=== PATIENT | female | born 1975 | race Caucasian/White ===

== ENCOUNTER 2021-01-08 11:06 | Emergency (ER) | payer OTHER ==
--- OUTSIDE RECORDS SUMMARY | 2021-01-08 11:10 | XMS REPORT | Continuity of Care Document ---
:1975 Author Organization [facility] t Address [address] [place] [address] Care Team Providers Name Role Phone Sattar Attending Clinician Gama Crum Attending Clinician Oscar Cason Attending Clinician Problems Condition Condition Condition Status Onset Resolution Last Treating Co mments Source Name Details Category Date Date Treatment Clinician Date DX: N63= Diagnosis Active 2016-11-27 M emoria UNSPECIFIE -14 12:15:00 l D LUMP IN DX: N63= 00:00: Her valdivia BREAST UNSPECIFIE 00 D LUMP IN BREAST Active 11/14/2016 [facility] M25.572 - Diagnosis Active 2014-092015-06-16 Memoria PAIN IN 0-14 11:57:00 l LEFT ANKLE M25.572 00:01: Her valdivia AND JOINTS - PAIN IN 00 LEFT ANKLE AND JOINTS Active 06/16/2015 [facility] Greg Anxiety Problem Active 2013-07-22 Jose tl (Symptom) 01:07:12 l Anxiety [place] (Symptom) Active [facility] Chronic Problem Active 2013-07-22 Jose tl Obstructiv 01:07:12 l e Chronic Greg Pulmonary Obstructiv Disease e Pulmonary Disease Active [facility] Polyneurop Problem Active 2021-01-04 M emoria athy 04:10:37 l associated Roney n with Polyneurop underlying athy disease associated with underlying disease Active Problem 01/04/2021 Enayet Rahim BMI Problem Active 2021-01-04 Memor ia 60.0-69.9, 04:10:37 l adult BMI [place] 60.0-69.9, adult Active Problem 01/04/2021 Enayet Rahim HTN Problem Active 2021-01-04 Memor ia (hypertens 04:10:37 l ion), HTN [place] benign (hypertens ion), benign Active Problem 01/04/2021 Enayet Rahim Acquired Problem Active 2021-01-04 Mem oria hypothyroi 04:10:37 l dism Acquired Roney n hypothyroi dism Active Problem 01/04/2021 Enayet Rahim Other Problem Active 2021-01-04 Memor ia specified 04:10:37 l hypothyroi Other Randi nn dism specified hypothyroi dism Active Problem 01/04/2021 Enayet Rahim Autoimmune Problem Active 2021-01-04 M emoria thyroiditi 04:10:37 l s [place] Autoimmune thyroiditi s Active Problem 01/04/2021 Enayet Rahim Back pain Problem Active 2021-01-04 Me moria with 04:10:37 l left-sided Back Roney n sciatica pain with left-sided sciatica Active Problem 01/04/2021 Enayet Rahim Hot Problem Active 2021-01-04 Memor ia flashes 04:10:37 l due to Hot Greg menopause flashes due to menopause Active Problem 01/04/2021 Enayet Rahim Encounter Diagnosis Active 2017-02-05 Memoria to 04:11:03 l establish Greg care Encounter to establish care Active Diagnosis 02/05/2017 Enayet Rahim Muscle Diagnosis Active 2017-02-05 Mem oria spasm of 04:11:03 l back Muscle Greg spasm of back Active Diagnosis 02/05/2017 Enayet Rahim Anxiety Problem Active 2021-01-04 Jose tl and 04:10:37 l depression Anxiety Her valdivia and depression Active Problem 01/04/2021 Enayet Rahim Incomplete Diagnosis Active 2017-05-15 Memoria tear of 04:11:03 l left Greg rotator Incomplete cuff tear of left rotator cuff Active Diagnosis 05/15/2017 Enayet Rahim Chronic Problem Active 2021-01-04 Jose tl pain 04:10:37 l syndrome Chronic Randi nn pain syndrome Active Problem 01/04/2021 Enayet Rahim Menstrual Problem Active 2021-01-04 Me moria periods 04:10:37 l irregular Greg Menstrual periods irregular Active Problem 01/04/2021 Dana Alonzo BMI Problem Active 2021-01-04 Memor ia 50.0-59.9, 04:10:37 l adult BMI Greg 50.0-59.9, adult Active Problem 01/04/2021 Dana Steinbergm Muscle Diagnosis Active 2018-07-13 Mem oria spasm 05:10:13 l Muscle [place] spasm Active Diagnosis 07/13/2018 Enkaveh Steinbergm Generalize Problem Active 2021-01-04 M emoria d anxiety 04:10:37 l disorder [place] Generalize d anxiety disorder Active Problem 01/04/2021 Enkaveh Steinbergm Acute Problem Active 2021-01-04 Memor ia stress 04:10:37 l reaction Acute [place] stress reaction Active Problem 01/04/2021 Dana Alonzo Severe Problem Active 2021-01-04 Memor ia obesity 04:10:37 l (BMI >= Severe [place] 40) obesity (BMI >= 40) Active Problem 01/04/2021 Dana Alonzo Pure Problem Active 2021-01-04 Memor ia hyperchole 04:10:37 l sterolemia Pure Roney n hyperchole sterolemia Active Problem 01/04/2021 Dana Alonzo Vitamin D Problem Active 2021-01-04 Me moria deficiency 04:10:37 l Vitamin [place] D deficiency Active Problem 01/04/2021 Enlizzyet Idrism Screening Diagnosis Active 2018-05-29 Memoria for 04:10:23 l cervical Greg cancer Screening for cervical cancer Active Diagnosis 05/29/2018 Enkaveh Alonzo Exposure Diagnosis Active 2018-12-07 M emoria to 04:11:32 l hepatitis Exposure Her valdivia C to hepatitis C Active Diagnosis 12/07/2018 Enlizzyet Idrism Toenail Diagnosis Active 2019-03-28 Me moria fungus 04:10:35 l Toenail Greg fungus Active Diagnosis 03/28/2019 Enlizzyet Rahim Breast Diagnosis Active 2018-06-24 Mem oria cancer 04:10:30 l screening Breast Rnadi nn cancer screening Active Diagnosis 06/24/2018 Enlizzyet Cheri Needs flu Diagnosis Active 2018-06-24 Memoria shot 04:10:30 l Needs [place] flu shot Active Diagnosis 06/24/2018 Enayet Rahim Blurred Diagnosis Active 2018-12-17 Me moria vision, 04:11:12 l left eye Blurred Randi nn vision, left eye Active Diagnosis 12/17/2018 Enayet Rahim Flat foot Diagnosis Active 2019-03-28 Memoria [pes 04:10:35 l planus] Flat [place] (acquired) foot [pes , left planus] foot (acquired) , left foot Active Diagnosis 03/28/2019 Enayet Rahim Flat foot Diagnosis Active 2019-03-28 Memoria [pes 04:10:35 l planus] Flat Greg (acquired) foot [pes , right planus] foot (acquired) , right foot Active Diagnosis 03/28/2019 Enayet Rahim Acute left Diagnosis Active 2019-03-28 Memoria ankle pain 04:10:35 l Acute Greg left ankle pain Active Diagnosis 03/28/2019 Enayet Rahim UNSPECIFIE Diagnosis Active 2016-11-27 Memoria D LUMP IN 12:15:00 l BREAST Greg UNSPECIFIE D LUMP IN BREAST Active [facility] Allergies, Adverse Reactions, Alerts Allergy Allergy Status Severity Reaction(s) Onset Inactive Treating Comm ents Source Name Type Date Date Clinician N.K.D.A. N.K.D.A. Active Info Not Jose tl Available 03-18 l 00:00: [place] 00 No Known No Known Active Memori a Drug Drug l Allergie Allerglilliam brown s s Family History Family Member Diagnosis Comments Start Date Stop Date Source Unknown Family Family History 2013-07-22 2013-07-22 Memori al Greg Member 01:07:12 01:07:12 Social History Social Habit Start Date Stop Date Quantity Comments Source Social History 2016-11-28 2016-11-28 [facility] 04:59:00 04:59:00 Smoking Status Start Date Stop Date Source Heavy tobacco smoker [facility] (LUF/YANETH/SA) Medications Ordered Filled Start Stop Current Ordering Indication Dosage Frequency Signature Comments Components Source Medication Medication Date Date Medication? Clinician (SIG) Name Name Ibuprofen Yes Denise 1 tablet Mem oria 4-29 [place] with food l 04:32: or milk [place] 50 Gabapentin Yes Denise take one Me moria 4-29 Bishop capsule by l 04:32: mouth Greg 50 three times a day Hydrochloro 2020-0 Yes Denise 1 tablet M emoria thiazide 4-29 Bishop in the l 04:32: morning Greg 50 Cyclobenzap 2020-0 Yes Denise 1 tablet M emoria rine HCl 4-29 Bishop as needed l 04:32: Greg 50 Fluoxetine 2020-0 Yes Denise TAKE ONE Me moria HCl 4-29 Bishop CAPSULE BY l 04:32: MOUTH Greg 50 EVERY MORNING Levothyroxi 2020-0 Yes Denise TAKE ONE M emoria ne Sodium 4-29 Bishop TABLET BY l 04:32: MOUTH [place] 50 EVERY MORNING ON AN EMPTY STOMACH Terbinafine 2018-0 Yes Denise 1 tablet M emoria HCl 7-26 Bishop l 04:10: [place] 35 Fluoxetine 2019-0 Yes Denise 1 capsule M emoria HCl 7-16 Bishop l 00:00: 00 Fluoxetine 2019-0 Yes Denise 1 capsule M emoria HCl 7-16 Bishop l 00:00: 00 Terbinafine 2019-0 Yes Denise 1 tablet M emoria HCl 6-11 Bishop l 00:00: Metoprolol 2019-0 Yes Denise 1 tablet Me moria Tartrate 6-11 Bishop with food l 00:00: 00 Losartan 2019-0 Yes Denise 1 tablet Jose tl Potassium 4-06 Bishop l 04:11: Greg 32 Telmisartan 2019-0 Yes Denise 1/2 tablet Memoria 3-28 Bishop l 00:00: 00 Telmisartan 2019-0 Yes Denise 1/2 tablet Memoria 3-28 Bishop l 00:00: 00 Levothyroxi 2018-1 Yes Denise 1 tablet M emoria ne Sodium 2-07 Bishop on an l 05:10: empty Greg 32 stomach in the morning Fluoxetine 2017-1 Yes Denise 1 tablet Me moria HCl 2-07 Bishop in the l 05:10: morning Greg 32 Baclofen 2017-0 Yes Denise TAKE ONE Jose tl 6-13 Bishop TABLET BY l 04:10: MOUTH Greg 25 DAILY NEEDED FOR SPASM , TAKE WITH FOOD OR MILK Gabapentin 2018-0 Yes Denise 1 capsule M emoria 6-13 Bishop l 04:10: [place] 2018-0 Yes Denise 1 tablet Memoria 6-13 Bishop as needed l 04:10: Hydrochloro 2018-0 Yes Denise 1 tablet M emoria thiazide 6-08 Bishop in the l 00:00: morning Hydrochloro 2018-0 Yes Denise 1 tablet M emoria thiazide 6-08 Bishop in the l 00:00: morning Hydrochloro 2018-0 Yes Denise 1 tablet M emoria thiazide 6-07 Bishop in the l 04:11: morning Losartan 2018-0 Yes Denise 1 tablet Jose tl Potassium 5-31 Bishop l 00:00: Cyclobenzap 2018-0 Yes Denise 1 tablet M emoria rine HCl 3-19 Bishop as needed l 00:00: Gabapentin 2017-0 Yes Denise 1 capsule M emoria 9-12 Bishop l 04:11: Fluoxetine 2017-0 Yes Denise 1 tablet Me moria HCl 9-12 Bishop in the l 04:11: morning Ibuprofen 2017-0 Yes Denise 1 tablet Mem oria 9-12 Bishop with food l 04:11: or milk Levothyroxi 2017-0 Yes Denise 1 tablet M emoria ne Sodium 9-12 Bishop on an l 04:11: empty stomach in the morning Hydrochloro 2017-0 Yes Denise 1 tablet M emoria thiazide 9-12 Bishop in the l 04:11: morning Tylenol/Cod 2017-0 Yes Denise 1 tablet M emoria eine #3 9-07 Bishop as needed l 00:00: Methocarbam 2017-0 Yes Denise 1 tablet M emoria ol 8-08 Bishop l 00:00: Contrave 2017-0 Yes Denise 1 teaspoon Me moria 8-08 Bishop l 00:00: Baclofen 2017-0 Yes Denise 1 tablet Jose tl 6-01 Bishop with food l 00:00: or milk Depo-Enamel Buffer 2012- Yes (Active) M emoria a 150 MG/ML 1-19 l Intramuscul 01:07: Roney bolaños 12 Suspension PROzac 20 2012-09 Yes (Active) Mem oria MG Oral 1-19 l Capsule 01:07: Greg Baires TraMADol 2012-09 Yes (Active) Jose tl HCl 50 MG 1-19 l Oral Tablet 01:07: Roney brown 12 Neurontin 2012-09 Yes (Active) Mem oria 300 MG Oral 1-19 l Capsule 01:07: Greg 12 Meloxicam 2012-09 Yes (Active) Mem oria 15 MG Oral 1-19 l Tablet 01:07: Greg Baires Gabapentin 2012-09 Yes (Active) Me moria 300 MG Oral 1-19 l Capsule 01:07: Greg 12 Ibuprofen 2012-09 Yes (Active) Mem oria 200 MG Oral 1-19 l Tablet 01:07: Greg 12 Amoxicillin 2012-09 Yes ; Start Mem oria -Pot 09-20 Date: l Clavulanate 06:00: 07/21/2013 [place] 875-125 MG 00 ; End Oral Tablet Date: 07/31/2013 (Active) Fluticasone 2012-09 Yes ; Start Mem oria Propionate 09-20 Date: l 50 MCG/ACT 06:00: 07/21/2013 [facility] Nasal 00 (Active) Suspension ProAir HFA 2012-09 Yes ; Start Jose tl 108 (90 09-20 Date: l Base) 06:00: 07/21/2013 Roney n MCG/ACT 00 ; End Inhalation Date: Aerosol 09/19/2013 Solution (Active) Bromfed DM 2012-09 Yes ; Start Jose tl 30-2-10 09-20 Date: l MG/5ML Oral 06:00: 07/21/2013 [place] Syrup 00 (Active) Vital Signs Vital Name Observation Time Observation Value Comments Source Weight 2019-03-24 15:30:00 [facility] Greg Height 2019-03-24 15:30:00 [facility] Greg Temperature Oral (F) 2019-03-24 15:30:00 97 F [facility] Greg Diastolic (mm Hg) 2019-03-24 15:30:00 Mem orial Greg Systolic (mm Hg) 2019-03-24 15:30:00 Jose rial Greg Temperature Oral (F) 2019-03-18 14:45:00 97.0 F [facility] [place] Diastolic (mm Hg) 2019-03-18 14:45:00 Mem orial Greg Systolic (mm Hg) 2019-03-18 14:45:00 Jose rial Greg Weight 2019-03-18 14:45:00 [facility] Greg Height 2019-03-18 14:45:00 [facility] [place] Weight 2019-02-11 16:45:00 [facility] Greg Height 2019-02-11 16:45:00 [facility] Greg Temperature Oral (F) 2019-02-11 16:45:00 97.3 F [facility] Greg Diastolic (mm Hg) 2019-02-11 16:45:00 Mem orial Greg Systolic (mm Hg) 2019-02-11 16:45:00 Jose rial Greg Weight 2018-12-09 20:45:00 [facility] Greg Height 2018-12-09 20:45:00 [facility] Greg Temperature Oral (F) 2018-12-09 20:45:00 96.8 F [facility] Greg Diastolic (mm Hg) 2018-12-09 20:45:00 Mem orial [place] Systolic (mm Hg) 2018-12-09 20:45:00 Jose rial [place] Weight 2018-11-28 19:45:00 [facility] [place] Height 2018-11-28 19:45:00 [facility] Greg Temperature Oral (F) 2018-11-28 19:45:00 97.3 F [facility] [place] Diastolic (mm Hg) 2018-11-28 19:45:00 Mem orial Greg Systolic (mm Hg) 2018-11-28 19:45:00 Jose rial [place] Weight 2018-11-07 21:00:00 [facility] [place] Height 2018-11-07 21:00:00 [facility] Greg Temperature Oral (F) 2018-11-07 21:00:00 97.9 F [facility] Greg Diastolic (mm Hg) 2018-11-07 21:00:00 Mem orial Greg Systolic (mm Hg) 2018-11-07 21:00:00 Jose rial Greg Weight 2018-08-07 17:15:00 [facility] [place] Height 2018-08-07 17:15:00 [facility] Greg Temperature Oral (F) 2018-08-07 17:15:00 97.1 F [facility] Greg Diastolic (mm Hg) 2018-08-07 17:15:00 Mem orial Greg Systolic (mm Hg) 2018-08-07 17:15:00 Jose rial Greg Weight 2018-06-17 20:30:00 [facility] [place] Height 2018-06-17 20:30:00 [facility] [place] Temperature Oral (F) 2018-06-17 20:30:00 97.0 F [facility] Greg Diastolic (mm Hg) 2018-06-17 20:30:00 Mem orial [place] Systolic (mm Hg) 2018-06-17 20:30:00 Jose rial [place] Weight 2018-03-14 20:00:00 [facility] [place] Height 2018-03-14 20:00:00 [facility] Greg Temperature Oral (F) 2018-03-14 20:00:00 98.2 F [facility] Greg Diastolic (mm Hg) 2018-03-14 20:00:00 Mem orial Greg Systolic (mm Hg) 2018-03-14 20:00:00 Jose rial Greg Weight 2018-02-08 20:00:00 [facility] [place] Height 2018-02-08 20:00:00 [facility] Greg Temperature Oral (F) 2018-02-08 20:00:00 97.5 F [facility] [place] Diastolic (mm Hg) 2018-02-08 20:00:00 Mem orial [place] Systolic (mm Hg) 2018-02-08 20:00:00 Jose rial [place] Weight 2018-01-31 16:15:00 [facility] Greg Height 2018-01-31 16:15:00 [facility] Greg Temperature Oral (F) 2018-01-31 16:15:00 97.2 F [facility] [place] Diastolic (mm Hg) 2018-01-31 16:15:00 Mem orial [place] Systolic (mm Hg) 2018-01-31 16:15:00 Jose rial Greg Weight 2017-11-27 15:00:00 [facility] [place] Height 2017-11-27 15:00:00 Memorial Greg Temperature Oral (F) 2017-11-27 15:00:00 97.6 F [facility] Greg Diastolic (mm Hg) 2017-11-27 15:00:00 Mem orial Greg Systolic (mm Hg) 2017-11-27 15:00:00 Jose rial [place] Weight 2017-11-19 19:45:00 [facility] Greg Height 2017-11-19 19:45:00 [facility] [place] Temperature Oral (F) 2017-11-19 19:45:00 97.4 F [facility] Greg Diastolic (mm Hg) 2017-11-19 19:45:00 Mem orial [place] Systolic (mm Hg) 2017-11-19 19:45:00 Jose rial [place] Weight 2017-05-10 16:30:00 [facility] [place] Height 2017-05-10 16:30:00 Memorial Greg Temperature Oral (F) 2017-05-10 16:30:00 96.7 F [facility] Greg Diastolic (mm Hg) 2017-05-10 16:30:00 Mem orial Greg Systolic (mm Hg) 2017-05-10 16:30:00 Jose rial Greg Weight 2017-04-10 14:00:00 [facility] [place] Height 2017-04-10 14:00:00 [facility] Greg Temperature Oral (F) 2017-04-10 14:00:00 96.3 F [facility] Greg Diastolic (mm Hg) 2017-04-10 14:00:00 Mem orial [place] Systolic (mm Hg) 2017-04-10 14:00:00 Jose rial [place] Weight 2017-02-01 18:00:00 [facility] [place] Height 2017-02-01 18:00:00 Memorial Greg Temperature Oral (F) 2017-02-01 18:00:00 96.5 F Memorial Greg Diastolic (mm Hg) 2017-02-01 18:00:00 Mem orial Greg Systolic (mm Hg) 2017-02-01 18:00:00 Jose rial Greg Procedures This patient has no known procedures. Encounters Start End Encounter Admission Attending Care Care Encounter Source Date/Time Date/Time Type Type Clinicians Facility Department ID 2021-01-03 2021-01-03 Outpatient Inpatient Inpatient [id number] [facility] 11:47:00 11:47:00 Providers Providers al [facility] 2021-01-03 2021-01-03 Outpatient Inpatient Inpatient [id number] [facility] 11:45:00 11:45:00 Providers Providers al [facility] 2020-06-21 2020-06-21 [facility] [id number] 12:18:00 23:59:00 VNS BRUNILDA ALAMOSA [facility] OT COMP [address] [place] [address] 2019-03-24 2019-03-24 Outpatient Inpatient Inpatient [id number] [facility]inic 10:30:00 10:30:00 Providers Providers al [facility] 2019-03-18 2019-03-18 Outpatient Inpatient Inpatient [id number] [facility]inic 09:45:00 09:45:00 Providers Providers al [facility] 2019-03-10 2019-03-10 Outpatient Inpatient Inpatient [id number] [facility] 10:03:00 10:03:00 Providers Providers al [facility] 2019-02-11 2019-02-11 Outpatient Inpatient Inpatient [id number] [facility]inic 12:17:00 12:17:00 Providers Providers al [facility] 2019-02-11 2019-02-11 Outpatient Inpatient Inpatient [id number] [facility]inic 11:45:00 11:45:00 Providers Providers al [facility] 2019-02-04 2019-02-04 Outpatient Inpatient Inpatient [id number] [facility] 10:31:00 10:31:00 Providers Providers al [facility] 2018-12-16 2018-12-16 Outpatient Inpatient Inpatient [id number] [facility]inic 15:43:00 15:43:00 Providers Providers al [facility] 2018-12-09 2018-12-09 Outpatient Inpatient Inpatient [id number] [facility] 15:45:00 15:45:00 Providers Providers al [facility] 2018-11-28 2018-11-28 Outpatient Inpatient Inpatient [id number] [facility]inic 14:45:00 14:45:00 Providers Providers al [facility] 2018-11-07 2018-11-07 Outpatient Inpatient Inpatient [id number] [facility]inic 16:00:00 16:00:00 Providers Providers al [facility] 2018-08-07 2018-08-07 Outpatient Inpatient Inpatient [id number] [facility] 11:15:00 11:15:00 Providers Providers al [facility] 2018-07-09 2018-07-09 Outpatient Inpatient Inpatient [id number] [facility]inic 17:08:00 17:08:00 Providers Providers al [facility] 2018-06-17 2018-06-17 Outpatient Inpatient Inpatient [id number] [facility]inic 15:30:00 15:30:00 Providers Providers al [facility] 2018-04-18 2018-04-18 Outpatient Inpatient Inpatient [id number] [facility]inic 14:15:00 14:15:00 Providers Providers al [facility] 2018-03-14 2018-03-14 Outpatient Inpatient Inpatient [id number] [facility]inic 15:00:00 15:00:00 Providers Providers al [facility] 2018-03-14 2018-03-14 Outpatient Inpatient Inpatient [id number] [facility] 15:00:00 15:00:00 Providers Providers al Works [facility] 2018-02-08 2018-02-08 Outpatient Inpatient Inpatient [id number] [facility]inic 15:00:00 15:00:00 Providers Providers al [facility] 2018-01-31 2018-01-31 Outpatient Inpatient Inpatient [id number] [facility]inic 11:15:00 11:15:00 Providers Providers al [facility] 2017-11-27 2017-11-27 Outpatient Inpatient Inpatient [id number] [facility]inic 10:00:00 10:00:00 Providers Providers al Works [facility] 2017-11-19 2017-11-19 Outpatient Inpatient Inpatient [id number] [facility]inic 14:45:00 14:45:00 Providers Providers al Works [facility] 2017-05-10 2017-05-10 Outpatient Inpatient Inpatient [id number] [facility]inic 11:30:00 11:30:00 Providers Providers al [facility] 2017-04-17 2017-04-17 Outpatient Inpatient Inpatient [id number] [facility]inic 14:29:00 14:29:00 Providers Providers al Works [facility] 2017-04-10 2017-04-10 Outpatient Inpatient Inpatient [id number] [facility]inic 09:00:00 09:00:00 Providers Providers al Works [facility] 2017-02-01 2017-02-01 Outpatient Inpatient Inpatient [id number] [facility] 13:00:00 13:00:00 Providers Providers al [facility] 2016-11-27 2016-11-27 Outpatient VIDA Stauffer [facility] [id number] 12:07:00 23:59:00 Valentina 00 2016-03-09 2016-03-09 Outpatient AMA CrumB [facility] [id number] 14:11:00 23:59:00 Duc Malloy 2015-06-16 2015-06-16 Outpatient JENNIFER Cason [facility] [id number] 11:48:00 23:59:00 Tico Moore 2013-07-21 2013-07-21 Outpatient [id number] 19:07:12 19:07:12 Results Test Description Test Time Test Comments Results Result Sourc e Comments SCR MAMM BILATERAL 2018-11-22 - SCR MAMM BILATERAL LIYAH CAD DIGITAL 15:49:20 LIYAH CAD DIGITALBILATERAL DIGITAL SCREENING MAMMOGRAM 3D/2D WITH CAD: 11/15/2018CLINICAL: Asymptomatic. Current mammographic images were evaluated by either a Sqwiggle M-Vu or an iCAD version 7.2 computer aided detection system. Comparison is made to exam dated 11/27/2016 mammogram - [facility]. The tissue of both breasts is predominantly fatty. No suspicious mass, architectural distortion, malignant type calcification, or lymph node abnormality detected. Breast architecture is stable compared to prior exams.IMPRESSION: NEGATIVEThere is no mammographic evidence of malignancy. Resume annual screening mammography in one year. Christiano gaona/penrad:11/22/2018 15:49:20 Foreman Or Supervisor And Operator: Jacquelyn ESPINOSA, [facility]-FWletter sent: BIRADS 1-2 Normal Mammogram BI-RADS: 1 Negative
[2021-01-08] MEDS ORDERED: MORPHINE 4 MG/ML SYR ONE (12:11)
[2021-01-08] MEDS ORDERED: NA CHLORIDE 0.9% 1,000 ML ONE (12:11)
[2021-01-08] MEDS ORDERED: ONDANSETRON 4 MG/2 ML VIAL ONE (12:11)
[2021-01-08 12:23] LABS: Urine Blood Negative (Negative); Urine Glucose Negative (Negative); Urine Protein Negative (Negative); Urine Specific Gravity 1.025 (1.005-1.030)
[2021-01-08 12:34] LABS: Absolute Lymphocytes (CBC) 0.4 K/uL (0.7-4.9); Basophils % 0.3 % (0-1.3); Hematocrit 45.7 % (36.0-45.0); Lymphocytes % 5.9 % (15.3-44.8); MPV 9.3 fL (7.6-11.3); RBC Red Blood Cell Count 4.75 M/uL (3.86-4.86)
[2021-01-08 12:57] LABS: ALT/SGPT 21 U/L (12-78); AST/SGOT 19 U/L (15-37); Albumin 4.2 g/dL (3.4-5.0); Alkaline Phosphatase 75 U/L (45-117); BUN Blood Urea Nitrogen 18 mg/dL (7-18); Bicarbonate 26 mmol/L (21-32); Bilirubin Direct < 0.1 mg/dL (0-0.2); Bilirubin Total 0.2 mg/dL (0.2-1.0); Glucose Level 125 mg/dL (74-106); Lipase 58 U/L (73-393); Potassium 3.9 mmol/L (3.5-5.1); Sodium Level 140 mmol/L (136-145)
--- NOTE | 2021-01-08 13:00 | RAD REPORT ---
EXAM DESCRIPTION: CTAbdomen Pelvis W Contrast - 01/08/2021 12:52 pm CLINICAL HISTORY: Abdominal pain. ABD PAIN COMPARISON: No comparisons TECHNIQUE: Biphasic CT imaging of the abdomen and pelvis was performed with 100 ml non-ionic IV cont rast. All CT scans are performed using dose optimization technique as appropriate and may include automated exposure control or mA/KV adjustment according to patient size. FINDINGS: The lung bases are clear. The liver, spleen, pancreas, adrenal glands are within normal limits. Benign cysts are present with t iny calcifications noted in both kidneys. Pattern suggestive of polycystic kidneys. No bowel obstruction, free air, free fluid or abscess. Mild sigmoid diverticulosis without diverticul itis. The appendix is normal. No evidence of significant lymphadenopathy. Mild moderate lumbar degenerative changes. IMPRESSION: No acute intra-abdominal or pelvic finding. Extensive cysts in both kidneys without hydronephrosis.
[2021-01-08 13:14] LABS: Blood Morphology Comment NOT SEEN (NOT SEEN); Platelet Estimate ADEQ
[2021-01-08 13:27] LABS: Troponin (Emerg Dept Use Only) < 0.02 ng/mL (0.0-0.045)
[2021-01-08] MEDS ORDERED: FAMOTIDINE 20 MG/2 ML VIAL IV ONE (14:14)
[2021-01-08 14:31] LABS: Urine Specific Gravity/Preg 1.025 (1.005-1.030)
--- NOTE | 2021-01-08 14:33 | ER ---
Nurse's Notes [facility] Name: Evie Duke Age: 45 yrs Sex: Female : 1975 Arrival Date: 01/08/2021 Time: : Bed 17 Private MD: Diagnosis: Unspecified abdominal pain Presentation: 01/08 11:27 Chief complaint: Patient states: BILATERAL UPPER QUADRANT ABD PAIN WITH N/V SINCE AM. bp Coronavirus screen: At this time, the client does not indicate any symptoms associated with coronavirus-19. Ebola Screen: No symptoms or risks identified at this time. Initial Sepsis Screen: Does the patient meet any 2 criteria? No. Patient's initial sepsis screen is negative. Does the patient have a suspected source of infection? No. Patient's initial sepsis screen is negative. Risk Assessment: Do you want to hurt yourself or someone else? Patient reports no desire to harm self or others. Onset of symptoms was January 08, 2021. 11:27 Method Of Arrival: Ambulatory bp 11:27 Acuity: SAVI 3 bp Triage Assessment: 11:31 General: Appears distressed, uncomfortable, obese, Behavior is cooperative, appropriate bp for age, anxious. Pain: Complains of pain in abdomen. EENT: No signs and/or symptoms were reported regarding the EENT system. Neuro: Level of Consciousness is awake, alert, obeys commands, Oriented to Appropriate for age Gait is Speech is normal, Cardiovascular: No deficits noted. Respiratory: No deficits noted. GI: Abdomen is non-distended, obese. : No signs and/or symptoms were reported regarding the genitourinary system. Derm: No deficits noted. Musculoskeletal: No deficits noted. Historical: - Allergies: : No Known Allergies; bp - Home Meds: 11:31 Xarelto oral oral [Active]; Wellbutrin Oral [Active]; Neurontin Oral [Active]; bp levothyroxine oral [Active]; - PMHx: 11:31 Depression; Degenerative disc disease; DVT; bp - Immunization history:: Adult Immunizations up to date. - Social history:: Smoking status: Patient reports the use of cigarette tobacco products, unknown amount. Screenin:37 Abuse screen: Denies threats or abuse. Denies injuries from another. Nutritional bp screening: No deficits noted. Tuberculosis screening: No symptoms or risk factors identified. Fall Risk None identified. Assessment: 11:37 General: SEE TRIAGE NOTE. bp 12:30 Reassessment: No changes from previously documented assessment. Patient and/or family bp updated on plan of care and expected duration. Pain level reassessed. PT TO CT Patient states symptoms have improved. 14:30 Reassessment: Patient appears in no apparent distress at this time. Patient and/or bp family updated on plan of care and expected duration. Pain level reassessed. Patient states symptoms have improved. 15:28 Reassessment: PT D/C HOME AMBULATORY, DX WITH ABDOMINAL PAIN AND STRESS. bp Vital Signs: 11:27 BP 172 / 101; Pulse 63; Resp 19; Temp 97.9; Pulse Ox 100% ; Weight 108.86 kg; Height 5 bp ft. 2 in. (157.48 cm); 12:30 BP 150 / 96; Pulse 61; Resp 17; Pulse Ox 97% ; bp 14:00 BP 148 / 103; Pulse 55; Resp 17; Pulse Ox 100% ; bp 11:27 Body Mass Index 43.90 (108.86 kg, 157.48 cm) bp ED Course: 11:09 Patient arrived in ED. ds1 11:14 Alden Schwab, YADIRA is Primary Nurse. bp 11:15 Jaziel Watts NP is PHCP. pm1 11:15 Gregorio Sanchez MD is Attending Physician. pm1 11:29 Triage completed. bp 11:35 Arm band placed on. bp 11:37 Patient has correct armband on for positive identification. Bed in low position. Call bp light in reach. Side rails up X2. 12:10 Radiology exam delayed due to test not completed at this time. IV insertion mw3 attempt and/or patient not having appropriate IV at this time. 12:15 Inserted saline lock: 22 gauge in right forearm, using aseptic technique. Blood bp collected. 12:31 No provider procedures requiring assistance completed. bp 12:52 CT Abd/Pelvis - IV Contrast Only In Process Unspecified. EDMS 14:10 Urine --Ancillary (enter results) Sent. bp 15:29 IV discontinued, intact, bleeding controlled, No redness/swelling at site. Pressure bp dressing applied. Administered Medications: 11:40 Drug: Zofran (Ondansetron) 4 mg Route: IVP; Site: right forearm; bp 12:57 Follow up: Response: Nausea is decreased bp 11:40 Drug: morphine 4 mg Route: IVP; Site: right forearm; bp 12:57 Follow up: Response: Pain is decreased bp 11:40 Drug: NS 0.9% 1000 ml Route: IV; Rate: 1000 ml; Site: right forearm; bp 12:57 Follow up: IV Status: Completed infusion; IV Intake: 1000ml bp 13:25 Drug: Pepcid (famotidine) 20 mg Route: IVP; Site: right forearm; bp 14:09 Follow up: Response: No adverse reaction bp 14:35 Drug: GI Cocktail without - (Maalox Suspension 30 ml, Lidocaine Liquid 2 % 15 bp ml) Route: PO; 15:30 Follow up: Response: No adverse reaction; Pain is decreased bp Intake: 12:57 IV: 1000ml; Total: 1000ml. bp Outcome: 14:33 Discharge ordered by MD. pm1 15:29 Discharged to home ambulatory. bp 15:29 Condition: stable 15:29 Discharge instructions given to patient, Instructed on discharge instructions, follow up and referral plans. medication usage, Demonstrated understanding of instructions, follow-up care, medications, Prescriptions given X 3. 15:30 Patient left the ED. bp Signatures: Dispatcher [employer] EDMS Lianna Reyes ds1 Jaziel Watts NP [employer] pm1 Alden Schwab RN RN Yuli Murillo mw3 Corrections: (The following items were deleted from the chart) 12:10 12:09 Radiology exam delayed due to IV insertion attempt and/or patient not having mw3 appropriate IV at this time. mw3 12:31 12:30 Reassessment: PT REFUSING ALL TREATMENT AND TESTING. SIGNED OUT AMA WITH FAMILY. bp PT AO4, STEADY GAIT. PT COUNSELED TO REMAIN BUT REFUSED bp 12:32 12:31 Patient did not have IV access during this emergency room visit. bp bp 12:32 12:31 AMA AMA form signed bp bp
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
[2021-01-08] MEDS ORDERED: MAGNES/ALUMIN/SIMET 30ML UCUP ONE (14:57)
[2021-01-08] MEDS ORDERED: LIDOCAINE VISCOUS 2% SOLN 15 ML UDC ONE (14:57)
[2021-01-08 15:38] VITALS: TEMP 97.9
[2021-01-08 15:41] VITALS: BP 148/103; O2SAT 100
== END 2021-01-08 15:30 | disposition home or self-care (01) ==
LOC: ER 11:06
DX: R10.9 Unspecified abdominal pain (principal); F17.210 Nicotine dependence, cigarettes, uncomplicated; R11.2 Nausea with vomiting, unspecified; F32.9 Major depressive disorder, single episode, unspecified; Z86.718 Personal history of other venous thrombosis and embolism
CPT/HCPCS: 85025; 80048; 36415; 81025; 82565; 80076; 81003; 84484; 83690; 74177; Q9967; J7030; J2405; 93005; 96361; 96374; 96375; 99284